=== PATIENT | female | born 1945 | race Hispanic/Latino ===

== ENCOUNTER → 2022-11-16 | Outpatient (CLI) | payer OTHER ==
[~2022-11-16] MED LIST: REGADENOSON 0.4 MG/5 ML PF SYG IVP ONE
== END | disposition home or self-care (01) ==
LOC: SHCH 09:07
PROVIDERS: ATTEND Internal Medicine Cardiovascular Disease
DX: R07.9 Chest pain, unspecified (principal)
CPT/HCPCS: 78452; 96374; 93017; J2785; A9500 ×2

== ENCOUNTER → 2023-08-26 | Outpatient (CLI) | payer OTHER ==
[2023-08-26 16:18] LABS: BASOPHILS # (AUTO) 0.08 K/uL (0.00-0.20); BASOPHILS % (AUTO) 0.8 % (0.0-5.0); EOSINOPHILS # (AUTO) 0.49 K/uL (0.00-0.70); EOSINOPHILS % (AUTO) 4.7 % (0.0-8.0); HEMATOCRIT 28.9 % (36-48); IMMATURE GRANULOCYTE ABSOLUTE 0.04 K/uL (0-1); LYMPHOCYTES # (AUTO) 3.4 K/uL (1.0-4.8); LYMPHOCYTES % (AUTO) 32.9 % (21.0-51.0); MEAN CORPUSCULAR HEMOGLOBIN 19.2 pg (27.0-33.0); MEAN CORPUSCULAR HGB CONC 28.4 g/dL (32.0-36.0); MEAN CORPUSCULAR VOLUME 67.7 fL (79-99); MONOCYTES # (AUTO) 0.7 K/uL (0.1-1.0); MONOCYTES % (AUTO) 6.7 % (3.0-13.0); NEUTROPHILS # (AUTO) 5.7 K/uL (1.8-7.7); NEUTROPHILS % (AUTO) 54.5 % (40.0-77.0); PLATELET COUNT (AUTO) 259 K/uL (130-400); RED BLOOD CELL COUNT(AUTO) 4.27 MIL/uL (4.00-5.50); RED CELL DISTRIBUTION WIDTH 19.9 % (11.0-15.5); WHITE BLOOD COUNT (AUTO) 10.4 K/uL (4.8-10.8)
[2023-08-26 16:43] LABS: ALBUMIN 3.6 g/dL (3.5-5.0); BILIRUBIN,TOTAL 0.9 mg/dL (0.2-1.0); CREATININE 0.9 mg/dL (0.5-1.5); MAGNESIUM 2.3 mg/dL (1.80-2.40); POTASSIUM 3.8 mmol/L (3.5-5.1); THYROID STIMULATING HORMONE 1.67 uIU/mL (0.36-3.74); TOTAL PROTEIN, SERUM 7.6 g/dL (6.0-8.3)
== END | disposition home or self-care (01) ==
LOC: LAB 15:48
PROVIDERS: ATTEND Internal Medicine Cardiovascular Disease
DX: I48.0 Paroxysmal atrial fibrillation (principal)
CPT/HCPCS: 36415; 80053; 83735; 84443; 85025